=== PATIENT | female | born 1990 | race Caucasian/White ===

== ENCOUNTER 2016-07-17 01:06 | Emergency (ER) | payer OTHER ==
--- NOTE | 2016-07-17 01:26 | ED Physician Documentation ---
PD HPI DYSPNEA - Stated complaint Stated Complaint: SOA - Chief complaint Chief Complaint: General - History obtained from History obtained from: Family, Friend - History of Present Illness Timing - onset: How many hours ago (1) Timing - details: Abrupt onset, Now resolved Associated symptoms: No: Fever, Cough, Hemoptysis, Wheezing, Chest pain / discomfort, Palpitations Similar symptoms before: Has not had sx before Recently seen: Not recently seen - Additional information Additional information: Patient is a 26 year old female with a history of depression who is presenting to the emergency department for shortness of breath. Patient states that she woke up tuesday morning for a birthday and drank from 6am until 5pm. Patient states that she took an advil and about 10 took a tylenol PM. patient states that while she was falling asleep she would jerk awake, because she wasn't breathing. Patient also reports that her heart was racing during that time. Review of Systems Constitutional: denies: Fever, Chills Eyes: denies: Loss of vision, Photophobia Ears: denies: Ear pain, Drainage/discharge Nose: denies: Rhinorrhea / runny nose, Congestion Throat: denies: Dental pain / toothache, Sore throat Cardiac: reports: Palpitations. 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 HEENT: None Psych: Depression, Anxiety Musculoskeletal: None Derm: None - Past Surgical History Past Surgical History: Yes HEENT: Tonsil/Adenoidectomy - Present Medications Home Medications: Ambulatory Orders Medication Instructions Recorded Confirmed Sertraline HCl [Zoloft] 50 mg PO DAILY 02/10/15 07/17/16 - Allergies Allergies/Adverse Reactions: Allergies Allergy/AdvReac Type Severity Reaction Status Date / Time Sulfa (Sulfonamide Allergy Rash Verified 07/17/16 01:14 Antibiotics) - Social History Does the pt smoke?: No Smoking Status: Never smoker Does the pt drink ETOH?: Yes Does the pt have substance abuse?: Yes Substance Use and Type: Cocaine/Crack - Immunizations Immunizations are current?: Yes - POLST Patient has POLST: No PD ED PE NORMAL - Vitals Vital signs reviewed: Yes - General General: Well developed/nourished - HEENT HEENT: Atraumatic, PERRL, Moist mucous membranes, Pharynx benign, Dentition benign - Neck Neck: Supple, no meningeal sign, No JVD - Cardiac Cardiac: No murmur, No gallop, No rub - Respiratory Respiratory: No respiratory distress, Clear bilaterally - Abdomen Abdomen: Soft, Non tender, Non distended - Derm Derm: Normal color, Warm and dry, No rash - Extremities Extremities: No deformity, No tenderness to palpate, Normal ROM s pain, No edema - Neuro Neuro: Alert and oriented X 3, 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 Patient was well appearing and in no acute distress. Patient was anxious on arrival, but while talking to the patient her heart rate went from 140 to 88. Patient also admitted to taking cocaine earlier in the day as well. patient's physical exam was within normal limits and patient was PERC negative. Patient required no imaging, diagnostics or treatment at this time. Patient only required re-assurance. Patient was stable for discharge with outpatient follow up. Departure - Departure Disposition: 01 Home, Self Care Clinical Impression: Panic attack Condition: Good Instructions: ED Panic Attack Follow-Up: Willow Burrell PA-C [Primary Care Provider] - Within 3 Days Comments: Your symptoms today were likely caused by medication (tylenol PM), withdrawal from etoh and a panic attack. Your physical exam was within normal limits and your vital signs were normal. You should follow up with your doctor on tuesday if your symptoms persist or if you get the anxiety reactions more frequently. Obviously you should refrain from mixing multiple substances and drinking excessively. You can return to the emergency department at any time for new, worsening or uncontrollable symptoms.
[2016-07-17 01:32] VITALS: BP 132/75
== END 2016-07-17 01:50 | disposition home or self-care (01) ==
LOC: ED 01:06
DX: F41.0 Panic disorder [episodic paroxysmal anxiety] (principal); F32.9 Major depressive disorder, single episode, unspecified
CPT/HCPCS: 99283; 99284

== ENCOUNTER 2016-10-04 13:05 | Outpatient (CLI) | payer OTHER ==
--- NOTE | 2016-10-04 14:29 | Ultrasound Report ---
PELVIC ULTRASOUND: 10/04/2016 CLINICAL INDICATION: Polycystic ovarian disease. TECHNIQUE: Transabdominal pelvic ultrasound performed for global evaluation. Transvaginal pelvic ul trasound performed for detailed evaluation. Real-time scanning performed and static images obtained. FINDINGS: The uterus is anteverted, measuring 7.8 x 3.9 x 2.7 cm. The endometrial echo complex gwen ures 7 mm. The right ovary measures 4.6 x 3.3 x 3.2 cm, and demonstrates peripheral follicles. The left ovary measures 5.3 x 5.8 x 4.8 cm and contains a central 4.6 x 4.3 x 2.8 cm hemorrhagic cyst. N ormal ovarian flow is noted. A small amount of free fluid is present in the cul-de-sac. IMPRESSION: FINDINGS COMPATIBLE WITH POLYCYSTIC OVARIAN DISEASE, WITH A HEMORRHAGIC LEFT OVARIAN CYS T PRESENT. NORMAL FLOW TO THE SURROUNDING OVARIAN PARENCHYMA. SMALL AMOUNT OF FREE FLUID IN THE CUL -DE-SAC. JOB #: [id number] EXT JOB #:[id number]
== END 2016-10-04 13:06 | disposition home or self-care (01) ==
LOC: DI 13:05
PROVIDERS: ATTEND Physician Assistant Medical
DX: N83.202 Unspecified ovarian cyst, left side (principal)
CPT/HCPCS: 76830; 76856

== ENCOUNTER 2017-05-13 07:29 | Emergency (ER) | payer OTHER ==
--- NOTE | 2017-05-13 08:04 | ED Physician Documentation ---
PD HPI ABD PAIN - Stated complaint Stated Complaint: ABD PX - Chief complaint Chief Complaint: Abd Pain - History obtained from History obtained from: Patient, Friend - History of Present Illness Timing - onset: Enter time (0100), Last night Timing - duration: Hours Timing - details: Gradual onset, Still present Quality: Sharp, Pain Location: LLQ Radiation: Left flank Improved by: Other (nothing) Worsened by: Other (at the initiation of urination pain is worse) Associated symptoms: No: Fever, Nausea, Vomiting, Hematemesis, Diarrhea, Constipation, Dizzy, Loss of appetite Similar symptoms before: Has not had sx before Recently seen: Not recently seen - Additional information Additional information: 27-year-old female was awakened by pain in her left side at about 1:00 in the morning. She notes that this pain seems a little worse when she starts to urinate. She feels that the pain radiates up to her flank. She has not had vomiting or fever. Review of Systems Constitutional: denies: Fever, Chills, Fatigue Eyes: denies: Decreased vision Ears: denies: Ear pain Nose: denies: Rhinorrhea / runny nose, Congestion Throat: denies: Sore throat Cardiac: denies: Chest pain / pressure, Palpitations Respiratory: denies: Dyspnea, Cough GI: reports: Abdominal Pain. denies: Nausea, Vomiting, Constipation, Diarrhea : denies: Dysuria, Frequency, Hematuria Musculoskeletal: reports: Back pain. 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 HEENT: None Psych: Depression, Anxiety Musculoskeletal: None Derm: None - Past Surgical History Past Surgical History: Yes HEENT: Tonsil/Adenoidectomy - Present Medications Home Medications: Ambulatory Orders Medication Instructions Recorded Confirmed traMADol [Ultram] 50 mg PO Q6H PRN #20 tablet 05/13/17 - Allergies Allergies/Adverse Reactions: Allergies Allergy/AdvReac Type Severity Reaction Status Date / Time Sulfa (Sulfonamide Allergy Rash Verified 05/13/17 07:41 Antibiotics) - Social History Does the pt smoke?: Yes Smoking Status: Current every day smoker Does the pt drink ETOH?: Yes Does the pt have substance abuse?: No - Immunizations Immunizations are current?: Yes - POLST Patient has POLST: No PD ED PE NORMAL - Vitals Vital signs reviewed: Yes (tachy and hypertensive) - General General: Alert and oriented X 3, No acute distress, Well developed/nourished - HEENT HEENT: Atraumatic, PERRL, EOMI - Neck Neck: Supple, no meningeal sign - Cardiac Cardiac: No murmur, Other (tachy to 100) - Respiratory Respiratory: No respiratory distress, Clear bilaterally - Abdomen Abdomen: Soft, Other (LUQ tenderness to bimanual palpation of the left kidney is mild. 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, No motor deficit, No sensory deficit, Normal speech Eye Opening: Spontaneous Motor: Obeys Commands Verbal: Oriented GCS Score: 15 - Psych Psych: Normal mood, Normal affect Results - Vitals Vitals: Vital Signs - 24 hr 05/13/17 07:34 Temperature 36.4 C L Heart Rate 104 H Respiratory 16 Rate Blood Pressure 149/99 H O2 Saturation 100 Oxygen O2 Source Room air - Labs Labs: Laboratory Tests 05/13/17 05/13/17 08:06 08:06 Urine Color YELLOW Urine Clarity CLOUDY Urine pH 6.5 Ur Specific [place] 1.020 1.020 Urine Protein NEGATIVE Urine Glucose (UA) NEGATIVE Urine Ketones NEGATIVE Urine Occult Blood TRACE-INTA Urine Nitrite NEGATIVE Urine Bilirubin NEGATIVE Urine Urobilinogen 0.2 (NORMAL) Ur Leukocyte Esterase NEGATIVE Urine RBC 0-5 Urine WBC 0-3 Ur Squamous Epith Cells MOD Squamous H Amorphous Sediment Moderate Urine Bacteria Few Ur Microscopic Review INDICATED Urine Culture Comments NOT INDICATED Urine HCG, Qual NEGATIVE - Rads (name of study) CT ab/pel without Radiology: Prelim report reviewed (1. No urinary tract stones or obstruction. 2. Enlarged left ovary measuring approximately 5.2 cm on the prior ultrasound from 09/14/2010 both ovaries were enlarged measuring 5 x 5.[address], left ovarian enlargement appears asymmetric. Given the length of time since the prior ultrasound history of acute left-sided abdominal pain, further evaluation with pelvic ultrasound may be helpful to evaluate for possible left ovarian cyst, mass, or torsion.), EMP read indepedently, See rad report ultrasound pelvis Radiology: Prelim report reviewed (Impression: Left ovary hemorrhagic cyst versus endometrioma versus neoplasm. Follow-up needed.), EMP read indepedently , See rad report Procedures - Bedside sono Bedside sono by EMP: With use of bedside ultrasound the left kidney is imaged there is no evidence of hydronephrosis the kidney is sonographically tender mildly. PD MEDICAL DECISION MAKING - ED course Complexity details: reviewed old records, reviewed results, re-evaluated patient , considered differential, d/w patient, d/w family ED course: 27 y/o female with left flank pain and hematuria. No evidence of infection and there are small stones in the right kidney and smaller stones in the left and no active stone disease is seen on CT this morning. The patient has some improvement in the pain with toradal but requires further pain medication and CT shows a concern for the ovary which is imaged with ultrasound with concern for hemorrhagic cyst vs neoplasm or endometrioma. She will need follow up. She is mid-cycle. Departure - Departure Disposition: 01 Home, Self Care Clinical Impression: Ovarian cyst Qualifiers: Laterality: left Qualified Code(s): N83.202 - Unspecified ovarian cyst, left side Condition: Stable Instructions: ED Cyst Ovarian Follow-Up: Willow Burrell PA-C [Primary Care Provider] - Prescriptions: traMADol [Ultram] 50 mg PO Q6H PRN #20 tablet PRN Reason: Pain Comments: Today it appears the pain you are having on your left side is a result of an ovarian cyst. There is an abnormal appearance to the cyst and follow-up is imperative. Follow-up with your primary care doctor in the next month for reimaging.
[2017-05-13] MEDS ORDERED: KETOROLAC 60 MG/2 ML VIAL IM STA (08:10)
[2017-05-13 08:17] LABS: BILIRUBIN,URINE NEGATIVE (NEGATIVE); GLUCOSE, URINE (UA) NEGATIVE (NEGATIVE); KETONES,URINE (UA) NEGATIVE (NEGATIVE); LEUKOCYTE ESTERASE, URINE NEGATIVE (NEGATIVE); NITRITE,URINE NEGATIVE (NEGATIVE); OCCULT BLOOD,URINE TRACE-INTA (NEGATIVE); PH,URINE 6.5 PH (5.0-7.5); PROTEIN,URINE NEGATIVE (NEGATIVE); UROBILINOGEN,URINE 0.2 (NORMAL) E.U./dL (NORMAL)
[2017-05-13 08:19] LABS: CLARITY,URINE CLOUDY (CLEAR); HCG UR QUAL NEGATIVE
[2017-05-13 08:38] LABS: BACTERIA,URINE Few /HPF (None Seen); RBC,URINE 0-5 /HPF (0-5); SQUAMOUS EPITHELIAL CELL,UR MOD Squamous (<= Few)
[2017-05-13 08:39] LABS: AMORPHOUS SEDIMENT,UR Moderate /LPF
--- NOTE | 2017-05-13 09:13 | CT Report ---
EXAM: CT ABDOMEN AND PELVIS (CT KUB) EXAM DATE: 05/13/2017 08:49 AM. CLINICAL HISTORY: Left flank pain this morning. COMPARISONS: Pelvic ultrasound 09/14/2010. TECHNIQUE: Routine axial helical CT imaging was performed through the abdomen and pelvis without IV c ontrast. Reconstructions: Coronal and sagittal. In accordance with CT protocol optimization, one or more of the following dose reduction techniques w ere utilized for this exam: automated exposure control, adjustment of mA and/or KV based on patient s ize, or use of iterative reconstructive technique. FINDINGS: Lung Bases: Unremarkable. Right Kidney/Ureter: No hydronephrosis or hydroureter. No perinephric fat stranding. There is a nonob structing calyceal calculus measuring 4 mm in the upper pole and a nonobstructing calyceal calculus m easuring 3 mm in the interpolar region. Left Kidney/Ureter: No hydronephrosis or hydroureter. No perinephric fat stranding. There is a nonobs tructing calyceal calculus measuring less than 2 mm at the inferior pole. Other Solid Organs: Noncontrast images of the solid organs are grossly unremarkable. Gallbladder/Bile Ducts: The gallbladder is decompressed. No calcified gallstones. No intrahepatic or extrahepatic biliary dilatation apparent on this noncontrast exam. Peritoneal Cavity: No free fluid, free air or kristel adenopathy. Bowel is grossly unremarkable. Pelvic Organs: No bladder stones or wall thickening. The left ovary appears enlarged, measuring appro ximately 5.2 x 4.1 x 4.7 cm (series 3 image 112, and series 6 image 44). Otherwise unremarkable nonco ntrast appearance of the visualized pelvic organs. Vasculature: Unremarkable. Other: The bones are unremarkable. IMPRESSION: 1. No urinary tract stones or obstruction. 2. Enlarged left ovary measuring up to approximately 5.2 cm. On the prior ultrasound from 09/14/2010, both ovaries were enlarged measuring 5.0-5.[address], left ovarian enlargement appears asymme tric. Given the length of time since the prior ultrasound and history of acute left-sided abdominal p ain, further evaluation with pelvic ultrasound may be helpful to evaluate for possible left ovarian c yst, mass, or torsion. [facility] Referring Provider Line: [phone] SITE ID: [id number]
[2017-05-13] MEDS ORDERED: HYDROmorphone 1 MG/ML SYRINGE IM STA (09:24)
[2017-05-13] MEDS ORDERED: ONDANSETRON ODT 4 MG TABLET TL STA (09:24)
--- NOTE | 2017-05-13 10:47 | Ultrasound Report ---
PELVIC ULTRASOUND: 05/13/2017 COMPARISON: Pelvic ultrasound 10/04/2016. INDICATION: Left lower quadrant pain. TECHNIQUE: Sonographic evaluation of the pelvis was performed using transabdominal and endovaginal technique. FINDINGS: The uterus has a normal appearance. Anteverted. No masses. Endometrial stripe 11 mm. No free fluid in the pelvis. The right ovary has a normal appearance with normal appearing blood flow. The left ovary has normal appearing blood flow. The left ovary contains a cyst versus mass with homogeneous internal echoes. Approximately 4.5 cm. IMPRESSION: COMPLEX LEFT OVARIAN CYST VERSUS MASS. DIFFERENTIAL CONSIDERATIONS INCLUDE A HEMORRHAGIC CYST, ENDOMETRIOMA, OR NEOPLASM. FOLLOWUP IS RECOMMENDED. TD: 05/13/2017 10:46 [facility]ITAL[facility]
[2017-05-13 11:14] VITALS: BP 137/97
== END 2017-05-13 11:13 | disposition home or self-care (01) ==
LOC: ED 07:29
DX: N83.202 Unspecified ovarian cyst, left side (principal); F17.200 Nicotine dependence, unspecified, uncomplicated
CPT/HCPCS: 74176; 76830; 76856; 81001; 81025; 93976; 96372; 99282; 99284; J1170; Q0162; 81003; 87086

== ENCOUNTER 2017-05-17 12:09 | Outpatient (CLI) | payer OTHER ==
[2017-05-17 12:24] LABS: HGB - HEMOGLOBIN 12.4 g/dL (12.0-16.0); MEAN CORPUSCULAR HEMOGLOBIN 29.4 pg (27.0-31.0); MEAN CORPUSCULAR HGB CONC 34.2 g/dL (32.0-36.0); MEAN CORPUSCULAR VOLUME 85.8 fL (81.0-99.0); MEAN PLATELET VOLUME 7.3 fL (7.9-10.8); PLT - PLATELET COUNT 307 10^3/uL (130-450); RED BLOOD COUNT 4.21 10^6/uL (4.20-5.40); RED CELL DISTRIBUTION WIDTH 14.2 % (12.0-15.0); WHITE BLOOD COUNT 11.6 x10^3/uL (4.8-10.8)
[2017-05-18 12:14] LABS: BASOPHILS # (AUTO) 0.1 10^3/uL (0.0-0.1); BASOPHILS % (AUTO) 0.9 %; EOSINOPHILS # (AUTO) 0.3 10^3/uL (0.0-0.7); EOSINOPHILS % (AUTO) 2.4 %; LYMPHOCYTES % (AUTO) 17.8 %; MONOCYTES # (AUTO) 0.9 10^3/uL (0.0-1.0); MONOCYTES % (AUTO) 8.1 %; NEUTROPHILS # (AUTO) 8.1 10^3/uL (1.5-6.6); NEUTROPHILS % (AUTO) 70.8 %
== END 2017-05-17 12:10 | disposition home or self-care (01) ==
LOC: LAB 12:09
PROVIDERS: ATTEND Obstetrics & Gynecology
DX: D64.9 Anemia, unspecified (principal); Z11.3 Encounter for screening for infections with a predominantly sexual mode of transmission
CPT/HCPCS: 36415; 85025; 87491; 87591

== ENCOUNTER 2017-05-17 12:30 | Outpatient (CLI) | payer OTHER | END 2017-05-17 12:31 | disposition home or self-care (01) | LOC: LAB.R 12:30 | PROVIDERS: ATTEND Obstetrics & Gynecology | DX: Z11.3 Encounter for screening for infections with a predominantly sexual mode of transmission (principal) | CPT/HCPCS: 87491; 87591 ==

== ENCOUNTER 2017-07-05 12:45 | Outpatient (CLI) | payer OTHER ==
--- NOTE | 2017-07-05 14:52 | Ultrasound Report ---
PELVIC ULTRASOUND: 07/05/2017 CLINICAL INDICATION: Ovarian cyst followup. COMPARISON: 05/13/2017. TECHNIQUE: Transabdominal pelvic ultrasound performed for global evaluation. Transvaginal pelvic ultrasound performed for detailed evaluation. Real-time scanning performed and static images obtained. FINDINGS: The uterus is anteverted, measuring 8.2 x 4.1 x 2.9 cm. The endometrium measures 5 mm. No focal myometrial lesion is present. The right ovary measures 4.6 x 3.9 x 3.3 cm, and demonstrates a 1.9 cm follicle. The left ovary measures 5.8 x 4.1 x 2.9 cm. The previously noted hypoechoic lesion has decreased significantly in size, now measuring 2.7 x 2.6 x 2.6 cm. A small amount of free fluid is present in the cul-de-sac. IMPRESSION: INTERVAL DECREASE IN SIZE OF HEMORRHAGIC LEFT OVARIAN CYST. RIGHT OVARIAN FOLLICLE. NORMAL BILATERAL OVARIAN FLOW. TD: 07/05/2017 14:50
== END 2017-07-05 12:46 | disposition home or self-care (01) ==
LOC: DI 12:45
PROVIDERS: ATTEND Obstetrics & Gynecology
DX: N83.299 Other ovarian cyst, unspecified side (principal); N83.202 Unspecified ovarian cyst, left side
CPT/HCPCS: 76830; 76856